=== PATIENT | male | born 1975 | race Caucasian/White ===

== ENCOUNTER 2017-05-10 12:09 | Observation (INO) | payer OTHER, BC ==
[2017-05-10 12:17] VITALS: BMI 35.2
[2017-05-10] MEDS ORDERED: Sodium Chloride 0.9% 500 ML IV STA (12:33)
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
[2017-05-10 13:06] LABS: ABG ALLEN TEST YES; ARTERIAL BLOOD GAS HCO3 27.9 mmol/L (21-28); ARTERIAL BLOOD GAS O2 SAT 98.8 % (95-98); ARTERIAL BLOOD GAS PCO2 46 mm/Hg (35-45); ARTERIAL BLOOD GAS PH 7.41 (7.35-7.45); ARTERIAL BLOOD GAS PO2 125 mm/Hg (80-100); ARTERIAL BLOOD GAS TCO2 30.6 mmol/L (22-28)
[2017-05-10 13:14] LABS: ABG ALLEN TEST YES; ARTERIAL BLOOD GAS HCO3 26.6 mmol/L (21-28); ARTERIAL BLOOD GAS HEMOGLOBIN 18.1 g/dL (11.7-17.4); ARTERIAL BLOOD GAS O2 CAPACITY 24.6 mL/dL (16-24); ARTERIAL BLOOD GAS O2 CONTENT 24.3 ML/dL (15-23); ARTERIAL BLOOD GAS O2 SAT 98.8 % (95-98); ARTERIAL BLOOD GAS PCO2 45 mm/Hg (35-45); ARTERIAL BLOOD GAS PO2 139 mm/Hg (80-100); ARTERIAL BLOOD GAS TCO2 29.3 mmol/L (22-28)
[2017-05-10 13:15] LABS: BASO % 0.7 % (0.0-2.0); EOS # 0.1 K/uL (0.0-0.7); EOS % 1.1 % (0.0-4.0); LYMPH # 1.6 K/uL (1.0-4.3); LYMPH % 26.6 % (20.0-40.0); MEAN CELL VOLUME 88.7 fl (80.0-94.0); MEAN CORPUSCULAR HEMOGLOBIN 29.7 pg (27.0-31.0); MEAN CORPUSCULAR HGB CONC 33.5 g/dL (33.0-37.0); MEAN PLATELET VOLUME 7.5 fl (7.2-11.7); MONO # 0.6 K/uL (0.0-0.8); MONO % 9.4 % (0.0-10.0); NEUT # 3.7 K/uL (1.8-7.0); NEUT % 62.2 % (50.0-75.0); NRBC % 0.1 % (0.0-0.0); RBC 5.71 Mil/uL (4.40-5.90)
[2017-05-10 13:30] LABS: INR 0.9 (0.9-1.2); PARTIAL THROMBOPLASTIN TIME 29.6 Seconds (25.6-37.1); PROTHROMBIN TIME 10.6 Seconds (9.8-13.1)
[2017-05-10 13:33] LABS: ALB/GLOB RATIO 1.4 (1.0-2.1); ALBUMIN 4.5 g/dL (3.5-5.0); ALT/SGPT 64 U/L (21-72); AST/SGOT 39 U/L (17-59); BLOOD UREA NITROGEN 14 mg/dl (9-20); GFR AFRICAN-AMERICAN > 60; GFR NON-AFRICAN AMERICAN > 60
[2017-05-10 13:36] LABS: CALCIUM 9.2 mg/dL (8.4-10.2)
--- NOTE | 2017-05-10 14:06 | RAD ---
HISTORY: Pain. COMPARISON: No prior. FINDINGS: LUNGS: No active pulmonary disease. PLEURA: No significant pleural effusion identified, no pneumothorax apparent. CARDIOVASCULAR: No radiographic findings to suggest acute or significant cardiovascular disease. OSSEOUS STRUCTURES: No significant abnormalities. VISUALIZED UPPER ABDOMEN: Normal. OTHER FINDINGS: None. IMPRESSION: No active disease.
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
[2017-05-11 04:27] LABS: ALB/GLOB RATIO 1.3 (1.0-2.1); ALBUMIN 4.1 g/dL (3.5-5.0); ALT/SGPT 57 U/L (21-72); AST/SGOT 36 U/L (17-59); BLOOD UREA NITROGEN 13 mg/dl (9-20); CALCIUM 8.8 mg/dL (8.4-10.2); GFR AFRICAN-AMERICAN > 60; GFR NON-AFRICAN AMERICAN > 60
[2017-05-11] MEDS ORDERED: Pneumococcal 23-Valent Vaccine IM ONE (06:00)
[2017-05-11 07:11] LABS: BASO # 0.1 K/uL (0.0-0.2); EOS # 0.1 K/uL (0.0-0.7); EOS % 2.4 % (0.0-4.0); HEMOGLOBIN 16.7 g/dL (12.0-18.0); LYMPH # 2.2 K/uL (1.0-4.3); LYMPH % 39.7 % (20.0-40.0); MEAN CELL VOLUME 88.6 fl (80.0-94.0); MEAN CORPUSCULAR HEMOGLOBIN 29.5 pg (27.0-31.0); MEAN CORPUSCULAR HGB CONC 33.3 g/dL (33.0-37.0); MEAN PLATELET VOLUME 7.6 fl (7.2-11.7); MONO # 0.5 K/uL (0.0-0.8); MONO % 9.4 % (0.0-10.0); NEUT # 2.7 K/uL (1.8-7.0); NEUT % 47.5 % (50.0-75.0); NRBC % 0.2 % (0.0-0.0); RBC 5.66 Mil/uL (4.40-5.90); RED CELL DISTRIBUTION WIDTH 13.9 % (11.5-14.5); WHITE BLOOD COUNT 5.6 K/uL (4.8-10.8)
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
[2017-05-11] MEDS ORDERED: Albuterol-Ipratrop 3 mg / 0.5 (3 ml) UD ONE (08:35)
[2017-05-11 08:55] VITALS: RESP 18
[2017-05-11] MEDS ORDERED: Metoprolol Succinate 25 mg XL Tab PO SCH (09:00)
[2017-05-11] MEDS ORDERED: Multivitamin With Minerals Tab PO SCH (09:00)
[2017-05-11] MEDS ORDERED: Patient's Own Med (Amlodipine/Valsartan [Exforge 10-320 Mg Tablet] 1 TAB) PO SCH (09:00)
[2017-05-11] MEDS ORDERED: Aminophylline 25 mg/ml Inj ONE (11:42)
--- NOTE | 2017-05-11 13:21 | CARD ---
APPROVED REPORT EKG Measurement Heart [id number] <Conclusion> Normal sinus rhythm ST & T wave abnormality, consider inferior ischemia Abnormal ECG
--- NOTE | 2017-05-11 13:33 | CARD ---
APPROVED REPORT EXAM: Two-dimensional and M-mode echocardiogram with Doppler, color Doppler with contrast. Other Information Quality : GoodRhythm : NSR INDICATION Chest Pain Echo Enhancing Agent Indication: LV ANEURSYM Agent/Amount Used: Definity 2D DIMENSIONS IVSd0.95 (0.7-1.1cm)LVDd4.41 (3.9-5.9cm) LVOT Diameter2.16 (1.8-2.4cm)PWd0.94 (0.7-1.1cm) IVSs1.67 (0.8-1.2cm)LVDs2.54 (2.5-4.0cm) FS (%) 42.4 %PWs1.47 (0.8-1.2cm) LVEF (%)55.0 (>50%) M-Mode DIMENSIONS Left Atrium (MM)4.38 (2.5-4.0cm)IVSd1.21 (0.7-1.1cm) Aortic Root2.97 (2.2-3.7cm)LVDd4.74 (4.0-5.6cm) Aortic Cusp Exc.1.88 (1.5-2.0cm)PWd0.97 (0.7-1.1cm) IVSs1.62 cmFS (%) 42 % LVDs2.74 (2.0-3.8cm)PWs1.50 cm Mitral Valve MV E Xcfdxexb81.7cm/sMV DECEL [id number] A Dqometbz77.6cm/s MV WOL26ywJ/A ratio1.1MVA (PHT)3.63cm2 TDI Lateral E' Peak V13.77cm/sMedial E' Peak V8.15cm/sE/Lateral E'5.6 E/Medial E'9.5 Pulmonary Valve PV Peak Kstwpbot051.9cm/s LEFT VENTRICLE The left ventricle is normal size. There is borderline concentric left ventricular hypertrophy. The left ventricular ejection fraction is within the normal range. Slightly aneurysmal [place] with mild Apical hypokinesis Transmitral Doppler flow pattern is Grade I-abnormal relaxation pattern. No left ventricle thrombus noted on this study. RIGHT VENTRICLE The right ventricle is normal size. There is normal right ventricular wall thickness. The right ventricular systolic function is normal. ATRIA The left atrium is mildly dilated. The right atrium size is normal. AORTIC VALVE The aortic valve is normal in structure and function. No aortic regurgitation is present. There is no aortic valvular stenosis. MITRAL VALVE The mitral valve is normal in structure and function. There is no mitral valve stenosis. There is no mitral valve regurgitation noted. TRICUSPID VALVE The tricuspid valve is normal in structure and function. There is no tricuspid valve regurgitation noted. PULMONIC VALVE The pulmonary valve is normal in structure There is mild pulmonic valvular regurgitation. GREAT VESSELS The aortic root is normal in size. The IVC was not visualized. PERICARDIAL EFFUSION The pericardium appears normal. <Conclusion> The left ventricle is normal size. There is borderline concentric left ventricular hypertrophy. The left ventricular ejection fraction is within the normal range. Slightly aneurysmal [place] with mild Apical hypokinesis Transmitral Doppler flow pattern is Grade I-abnormal relaxation pattern. No left ventricle thrombus noted on this study.
--- NOTE | 2017-05-11 15:11 | CP.PCM.PN ---
Subjective - Date & Time of Evaluation Date of Evaluation: 05/11/17 Time of Evaluation: 15:00 - Subjective Subjective: I reviewed the nuclear images and discussed with the patient. There is a small area of hypoperfusion in the posterior lateral/inferolateral segment. The left ventricular function is normal. The patient is asymptomatic currently. Recommend conitnued medical therapy and discharge today. Patient will have outpatient follow up. Objective - Vital Signs/Intake and Output Vital Signs (last 24 hours): Temp Pulse Resp BP Pulse Ox 98.2 F 61 18 150/90 97 05/11/17 12:59 05/11/17 12:59 05/11/17 12:09 05/11/17 12:59 05/11/17 12:09 - Medications Medications: Current Medications Acetaminophen (Tylenol 325mg Tab) 650 mg PO Q4 PRN PRN Reason: Pain, moderate (4-7) Last Admin: 05/10/17 22:41 Dose: 650 mg Amlodipine Besylate (Norvasc) 10 mg PO DAILY [facility] Last Admin: 05/11/17 12:16 Dose: 10 mg Aspirin (Ecotrin) 81 mg PO DAILY [facility] Last Admin: 05/11/17 12:15 Dose: 81 mg Fluticasone Propionate (Flonase) 2 spr ANDREAS DAILY PRN PRN Reason: Allergy symptoms Home Med (Rosuvastatin Calcium [Crestor]) 40 mg PO [facility] Metoprolol Succinate (Toprol Xl) 25 mg PO DAILY [facility] Last Admin: 05/11/17 12:16 Dose: 25 mg Multivitamins/Minerals (Therapeutic-M Tab) 1 tab PO DAILY [facility] Last Admin: 05/11/17 12:17 Dose: 1 tab Nitroglycerin (Nitrostat Sl Tab) 0.4 mg SL Q5M PRN PRN Reason: cp Last Admin: 05/10/17 18:18 Dose: 0.4 mg Valsartan (Diovan) 320 mg PO DAILY [facility] Last Admin: 05/11/17 12:15 Dose: 320 mg - Labs Labs: 05/11/17 05:00 05/11/17 04:13 PT 10.6 Seconds (9.8-13.1) 05/10/17 13:00 INR 0.9 (0.9-1.2) 05/10/17 13:00 APTT 29.6 Seconds (25.6-37.1) 05/10/17 13:00 Assessment and Plan (1) HTN (hypertension) Status: Acute (2) Hypercholesteremia Status: Acute (3) Chest pain Status: Acute
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
[2017-05-11 16:11] VITALS: BP 135/76; PULSE 76; TEMP 98.4; O2SAT 96
--- NOTE | 2017-05-11 17:34 | CARD ---
APPROVED REPORT Protocol: LEXISCAN Test Type: STRESS NUCLEAR Medications: CRESTOR 40MG, DIOVAN 320MG, TOPROL XL 25MG, ASA 81MG, AMLODIPINE 10MG, Medical History: CHEST PAIN, STROKE, FAMILY HISTORY, Target HR: 179 bpm Resting ECG: Border Line LVH Resting Heart Rate: 67 bpm Resting Blood Pressure: 138/76mmHg submaximum (85%): 152 bpm TEST SUMMARY PREINJECTPRE-[id number]/76.0. [id number]/76.0. INJECTIONNS FLUSH00:[id number]/76.0. INJECTIONNUC MED00:[id number]/89.0. [id number]/73.0. PROCEDURE Pharmacologic stress testing was performed using 0.4mg per 5ml of regadenoson given intravenously over 7-10 seconds. POST EXERCISE Reason for Termination: Pharmacologic Stress Test Target HR: No Max HR: 98 bpm 55% of Maximum Predicted HR: 179 bpm Exercise duration: 01:00 min:sec, 0 Stage Exercise capacity: 1.0METs Max Blood Pressure: 159/70mmHg Blood Pressure response to exercise: normal resting BP - appropriate response Heart Rate response to exercise: appropriate Chest Pain: No, none Angina index: 0 Arrhythmia: No, none ST Change: No, none Deviation: 0 mm Clinical Indications Under Appropriate Use Criteria This 41-year-old man, a hypertensive who had suffered a cerebrovascular accident underwent this study to rule out evidence of coronary artery disease. He denied any episode of effort related chest pain. There was no history of prior myocardial infarction. His resting electric cardiogram showed sinus rhythm at [address]-T changes involving leads V4, V5 and V6 as well as leads 23 and aVF. His resting blood pressure was 138/76 centimeters of mercury. His cardiac auscultation was unremarkable. Stress EKG Interpretation The patient underwent a resting myocardial scan after 10 mCi of sestamibi was given intravenously followed 45 minutes later by myocardial scanning. An hour and a half from the initial administration of sestamibi, the patient underwent an intravenous infusion of 0.4 mg of Lexiscan given over 10 seconds followed immediately by 30 mCi of sestamibi given intravenously. The patient tolerated the Lexiscan infusion without any symptoms and appropriate changes in his heart rate and blood pressure. There were no ST-T abnormalities suggestive of myocardial ischemia following Lexiscan infusion. The patient left the stress lab symptom free and hemodynamically stable. He underwent a second myocardial scan 45 minutes later. The 2 sets of images were processed. Gated and planar images were acquired. Tomographic images were examined. EXAM: Myocardial Perfusion REST/STRESS Image QualityGood Imaging Protocol The imaging protocol used to acquire images was Rest Tc-99m/stress Tc-99m 1 day Rest Spect myocardial perfusion imaging was performed in supine position 45 minutes following the injection of 10 mCi of Tc-99 Myoview. Time of rest injection: 7:44 Time of rest imagin:00 At peak stress, the patient was injected intravenously with 30mCi of Tc-99 tetrofosmin after an infusion time of minutes and seconds. Time of stress injection: 11:50 Time of stress imagin:00 Gated Stress Spect was performed 130 minutes after intravenous Tc-99 Myoview injection. The images were gated to evaluate regional wall motion and calculate ventricular ejection fraction. LV Perfusion The post Lexiscan images demonstrated patchy sestamibi uptake with sestamibi deficit particularly in basal two thirds of inferior wall as well as the basal half of anterior wall and lateral velez. On resting images there was a significant improvement in sestamibi uptake involving inferior and lateral velez while the anterior wall sestamibi deficit was fixed. The remaining left ventricular wall segments demonstrated normal regional sestamibi uptake. Wall Motion Gated images showed a normal-sized left ventricle with normal regional wall motion and wall thickening. His resting left ventricular ejection fraction was 70%. CONCLUSION 1. The SPECT study was suggestive of a myocardial scar involving the basal half of anterior wall while the basal two thirds of inferior wall and lateral velez appeared to have potentially ischemic myocardium. The possibility that this could be artifact was discussed with the ordering physician. I would strongly urge clinical correlation. Gated images showed preserved left ventricular systolic function with an ejection fraction of 70%.
--- NOTE | 2017-05-12 08:35 | CARD ---
APPROVED REPORT EKG Measurement Heart [id number] <Conclusion> Normal sinus rhythm ST & T wave abnormality, consider inferior ischemia Abnormal ECG
== END 2017-05-11 16:00 | disposition home or self-care (01) ==
LOC: H.ER 12:09 → H.ERHOLD 14:59 → H.TEL 21:58
PROVIDERS: ADMIT Family Medicine; ATTEND Family Medicine
DX: R07.89 Other chest pain (principal); J70.5 Respiratory conditions due to smoke inhalation; I10 Essential (primary) hypertension; E78.00 Pure hypercholesterolemia, unspecified; Z23 Encounter for immunization; Z86.73 Personal history of transient ischemic attack (TIA), and cerebral infarction without residual deficits; T59.811A Toxic effect of smoke, accidental (unintentional), initial encounter
CPT/HCPCS: 36415; 71010; 78452; 80053; 82803; 84484; 85025; 85610; 85730; 90471; 90732; 93005; 93017; 93306; 96360; 96361; 99285; A9502; G0378; J2270; J2785; J7040

== ENCOUNTER 2019-02-12 17:00 | Emergency (ER) | payer OTHER, BC ==
[2019-02-12 17:01] VITALS: BMI 35.2
[2019-02-12 17:18] VITALS: BP 135/81; PULSE 100; RESP 18; TEMP 98.2; O2SAT 99
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
--- NOTE | 2019-02-12 18:04 | RAD ---
PROCEDURE: Bilateral hand radiographs. HISTORY: r/o 4th or 5th metacarpal fx COMPARISON: 12/05/2008. Radiographs right hand. TECHNIQUE: 6 views obtained. FINDINGS: BONES: Right Hand: Normal. No osteoarthritic changes. Left Hand: Normal. No osteoarthritic changes. JOINTS: Right Hand: Normal. Left Hand: Normal. SOFT TISSUES: Right Hand: Normal. Left Hand: Normal. OTHER FINDINGS: None. IMPRESSION: Normal radiographs of the hands.
[2019-02-12 18:48] LABS: HEMOGLOBIN 17.2 g/dL (12.0-18.0); MEAN CELL VOLUME 89.8 fl (80.0-94.0); MEAN CORPUSCULAR HEMOGLOBIN 29.9 pg (27.0-31.0); MEAN CORPUSCULAR HGB CONC 33.3 g/dL (33.0-37.0); RBC 5.75 Mil/uL (4.40-5.90); RED CELL DISTRIBUTION WIDTH 13.3 % (11.5-14.5); WHITE BLOOD COUNT 11.5 K/uL (4.8-10.8)
[2019-02-12 18:58] LABS: SQUAMOUS EPITHIAL < 1 /hpf (0-5); URINE BILIRUBIN NEGATIVE (NEGATIVE); URINE BLOOD SMALL (NEGATIVE); URINE CLARITY SLIGHTY-CLOUDY (Clear); URINE COLOR YELLOW (YELLOW); URINE GLUCOSE (UA) NEG (NEGATIVE); URINE HYALINE CAST 0-2 /hpf (0-2); URINE LEUKOCYTE ESTERASE NEG Leu/uL (Negative); URINE PROTEIN 30 mg/dL (NEGATIVE); URINE UROBILINOGEN 0.2-1.0 mg/dL (0.2-1.0)
[2019-02-12 19:05] LABS: ALB/GLOB RATIO 1.3 (1.0-2.1); ALBUMIN 4.6 g/dL (3.5-5.0); ALT/SGPT 53 U/L (21-72); AMYLASE 112 U/L (30-110); AST/SGOT 32 U/L (17-59); BLOOD UREA NITROGEN 18 mg/dl (9-20); CALCIUM 9.6 mg/dL (8.4-10.2); GFR NON-AFRICAN AMERICAN > 60
[2019-02-12 20:12] LABS: BASO % 0.6 % (0.0-2.0); EOS % 0.4 % (0.0-4.0); LYMPH % 16.1 % (20.0-40.0); MEAN PLATELET VOLUME 8.5 fl (7.2-11.7); MONO % 7.5 % (0.0-10.0); NEUT # 8.7 K/uL (1.8-7.0); NEUT % 75.4 % (50.0-75.0); NRBC % 0.2 % (0.0-0.0)
[2019-02-12 20:13] LABS: BASO # 0.1 K/uL (0.0-0.2); LYMPH # 1.9 K/uL (1.0-4.3); MONO # 0.9 K/uL (0.0-0.8)
[2019-02-13 11:12] LABS: HEPATITIS B SURFACE AG Negative (NEGATIVE)
[2019-02-13 11:13] LABS: HEPATITIS B SURFACE AG Negative (NEGATIVE)
[2019-02-13 11:19] LABS: HEPATITIS A IGM NEGATIVE (NEGATIVE); HEPATITIS B CORE AB NEGATIVE (NEGATIVE)
[2019-02-13 11:30] LABS: HEPATITIS C ANTIBODY NEGATIVE (NEGATIVE)
== END 2019-02-12 20:47 | disposition home or self-care (01) ==
LOC: H.ER 17:00
DX: S61.214A Laceration without foreign body of right ring finger without damage to nail, initial encounter (principal); Z77.21 Contact with and (suspected) exposure to potentially hazardous body fluids; S60.222A Contusion of left hand, initial encounter; S60.221A Contusion of right hand, initial encounter; I10 Essential (primary) hypertension; Z88.8 Allergy status to other drugs, medicaments and biological substances; R31.9 Hematuria, unspecified; X58.XXXA Exposure to other specified factors, initial encounter; Y99.0 Civilian activity done for income or pay